=== PATIENT | male | born 1975 | race Caucasian/White ===

== ENCOUNTER 2020-12-25 15:15 | Emergency (ER) | payer MEDICARE ==
[~2020-12-25 15:15] MED LIST: ALLERGY RELIEF10 M3 PO; AMBIEN10 MG PO; ASPIR-LOW81 MG PO; AUGMENTIN 875-1 EACH PO; AZELASTINE137 MCG/0.; BASAGLAR K100 UNIT/1 SC; CORDARONE 200M200 MG PO; DOXYCYCLINE MO100 MG PO; FAMOTIDINE20 MG PO; FLOMAX0.4 MG PO; FLONASE 0.05% N16 GM; GABAPENTIN100 MG PO; GLUCOTROL5 MG PO; HYDROCODON-ACE1 EAC6 PO; IBUPROFEN800 MG PO; K-DUR TAB 20 M20 MEQ PO; LASIX 40 MG TAB40 MG PO; LEVAQUIN750 MG PO; LIPITOR TAB 2020 MG PO; LISINOPRIL2.5 MG PO; LOPRESSOR 50 MG50 MG PO; MUCINEX1200 MG PO; NORCO 5-325 TA1 EACH PO; NORCO 7.5-3251 EACH PO; OZEMPIC1 MG/0.75 SQ; PERCOCET 5/325 T1 EA PO; PERCOCET 7.5-31 EACH PO; PLAVIX 75 MG TA75 MG PO; PRINIVIL10 MG PO; PROTONIX40 MG PO; SEROQUEL100 MG PO; TESTOSTERON100 MG/ML IM; TOPROL XL 50 MG50 MG PO; TOPROL XL50 MG PO; VIAGRA50 MG PO; VISTARIL 25 MG25 MG PO; ZANAFLEX4 M1 PO; ZOFRAN4 MG PO; [UNRECOGNIZED DRUG - SUPPLY] MC
[2020-12-25] MEDS ORDERED: PREDNISONE 20 M20 MG PO (18:38)
[2020-12-25] MEDS ORDERED: PULMICORT FLEX90 MCG INH (18:38)
[2020-12-25] MEDS ORDERED: PROAIR HFA8.5 GM INH (18:38)
== END 2020-12-25 18:55 | disposition home or self-care (01) ==
LOC: ER1 15:15
DX: J20.9 Acute bronchitis, unspecified (principal); Z20.822 Contact with and (suspected) exposure to COVID-19; E11.9 Type 2 diabetes mellitus without complications; I25.10 Atherosclerotic heart disease of native coronary artery without angina pectoris; F17.290 Nicotine dependence, other tobacco product, uncomplicated; Z95.1 Presence of aortocoronary bypass graft
CPT/HCPCS: 71045; 99284; U0003